=== PATIENT | female | born 1935 | race Caucasian/White ===

== ENCOUNTER 2023-07-29 16:15 | Emergency (ER) | payer MEDICARE, OTHER ==
[~2023-07-29] VITALS: Ht 157.5 cm; Wt 83.9 kg
[2023-07-29] MEDS ORDERED: ALBUTEROL FS 2.5 MG/3 ML VIAL.NEB ONE ×2 (17:15→20:45)
[2023-07-29] MEDS ORDERED: IPRATROPIUM NEB FS 0.5 MG/2.5 ML AMPUL.NEB ONE (17:15)
[2023-07-29 17:19] VITALS: O2SAT 96
[2023-07-29 17:23] LABS: BASOPHILS # (AUTO) 0.1 K/uL (0.0-0.2); BASOPHILS % (AUTO) 0.6 % (0.0-2.0); EOSINOPHILS # (AUTO) 0.1 K/uL (0.0-0.7); EOSINOPHILS % (AUTO) 0.9 % (0.0-6.0); HEMATOCRIT 29 % (33-45); HEMOGLOBIN 8.9 g/dL (11.5-14.8); LYMPHOCYTES # (AUTO) 6.4 K/uL (0.8-4.8); LYMPHOCYTES % (AUTO) 49.7 % (20.0-44.0); MEAN CORPUSCULAR HEMOGLOBIN 28 PG (26.0-33.0); MEAN CORPUSCULAR HGB CONC 31 g/dl (31.0-36.0); MEAN CORPUSCULAR VOLUME 89 fL (82-100); MONOCYTES # (AUTO) 0.3 K/uL (0.1-1.30); MONOCYTES % (AUTO) 2.3 % (2.0-12.0); NEUTROPHILS % (AUTO) 46.5 % (43.0-81.0); PLATELET COUNT (AUTO) 146 K/uL (150-450); RED BLOOD CELL COUNT(AUTO) 3.21 MIL/uL (4.0-5.2); RED CELL DISTRIBUTION WIDTH 16.9 % (11.5-15.0)
[2023-07-29] MEDS ORDERED: IPRATROPIUM NEB FS 0.5 MG/2.5 ML AMPUL.NEB NEB ONE (17:30)
[2023-07-29] MEDS ORDERED: ALBUTEROL FS 2.5 MG/3 ML VIAL.NEB NEB ONE ×2 (17:30→21:30)
[2023-07-29 17:34] VITALS: O2SAT 96
[2023-07-29] MEDS ORDERED: INSU100I30 SQ (18:30)
[2023-07-29] MEDS ORDERED: AMLO5TAB4 PO (18:30)
[2023-07-29] MEDS ORDERED: FLUT16SP16 BNOSTRILS (18:30)
[2023-07-29] MEDS ORDERED: SERT50TA PO (18:30)
[2023-07-29] MEDS ORDERED: SITA100T PO (18:30)
[2023-07-29] MEDS ORDERED: LEVO50TA8 PO (18:30)
[2023-07-29] MEDS ORDERED: OLME40TA12 PO (18:30)
[2023-07-29] MEDS ORDERED: FURO-145 PO (18:30)
[2023-07-29] MEDS ORDERED: IPRA0.2S9 IH (18:30)
[2023-07-29] MEDS ORDERED: ALBU2.5V38 IH (18:30)
[2023-07-29] MEDS ORDERED: BUDE0.5A4 IH (18:30)
[2023-07-29] MEDS ORDERED: LORA-258 PO (18:30)
[2023-07-29] MEDS ORDERED: OMEP40CA21 PO (18:30)
[2023-07-29] MEDS ORDERED: MONT10TA22 PO (18:30)
[2023-07-29] MEDS ORDERED: ROSU10TA2 PO (18:30)
[2023-07-29] MEDS ORDERED: CARV12.52 PO (18:30)
[2023-07-29 19:24] LABS: CALCIUM, SERUM 8.8 mg/dL (8.5-10.1); CARBON DIOXIDE 25 mmol/L (21-32); CHLORIDE 102 mmol/L (98-107); CREATININE 1.2 mg/dL (0.6-1.3); GLUCOSE 137 mg/dL (74-106); POTASSIUM 4.9 mmol/L (3.5-5.1); SODIUM SERUM 135 mmol/L (136-145); UREA NITROGEN, BLOOD 22 mg/dL (7-18)
[2023-07-29 19:30] LABS: ALANINE AMINOTRANSFERASE 8 U/L (12-78); ALBUMIN 3.4 g/dL (3.4-5.0); ALKALINE PHOSPHATASE 77 U/L (46-116); ASPARTATE AMINOTRANSFERASE 24 U/L (15-37); BILIRUBIN,DIRECT 0.1 mg/dL (0.0-0.2); BILIRUBIN,TOTAL 0.5 mg/dL (0.2-1.0); TOTAL PROTEIN, SERUM 6.8 g/dL (6.4-8.2)
[2023-07-29] MEDS ORDERED: LEVOFLOXACIN 750 MG /D5W 150ML PIGGYBACK IV ONE (20:30)
[2023-07-29] MEDS ORDERED: LEVOFLOXACIN 750 MG /D5W 150ML 150 ML IV ONE ×2 (20:48→21:00)
[2023-07-29 20:53] LABS: EOSINOPHILS % (MANUAL) 2 % (0-4); LYMPHOCYTES % (MANUAL) 48 % (16-48); MONOCYTES % (MANUAL) 5 % (0-11.0); NEUTROPHILS % (MANUAL) 44 (42-76); PLATELET ESTIMATE DECREASED; REACTIVE LYMPHOCYTES 1 % (0-0)
[2023-07-29 20:54] LABS: ANISOCYTOSIS 1+; TARGET CELLS 1+
[2023-07-29 21:27] VITALS: O2SAT 98
[2023-07-29 21:42] VITALS: O2SAT 99
[2023-07-29] MEDS ORDERED: FUROSEMIDE 40 MG/4 ML VIAL IV ONE (22:30)
[2023-07-29] MEDS ORDERED: FUROSEMIDE 40 MG/4 ML VIAL ONE (23:07)
[2023-07-30 02:20] VITALS: BP 139/57; TEMP 97.9; O2SAT 94
== END 2023-07-30 02:44 ==
LOC: ER 16:15
DX: J96.91 Respiratory failure, unspecified with hypoxia (principal); J44.1 Chronic obstructive pulmonary disease with (acute) exacerbation; D64.9 Anemia, unspecified; D72.829 Elevated white blood cell count, unspecified; J45.909 Unspecified asthma, uncomplicated; I10 Essential (primary) hypertension; E11.9 Type 2 diabetes mellitus without complications; E03.9 Hypothyroidism, unspecified; Z79.4 Long term (current) use of insulin; Z20.822 Contact with and (suspected) exposure to COVID-19; Z79.899 Other long term (current) drug therapy; Z88.2 Allergy status to sulfonamides; Z91.040 Latex allergy status
CPT/HCPCS: 99291; 96365; 71045; 96375; 87426; 93005; 87804 ×2; 85025; 80048; 80076; 36415; 84484; 83880; 94640; 85007; J1940; A6403; J1956; A4223; C9803